=== PATIENT | female | born 1995 | race Caucasian/White ===

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

== ENCOUNTER → 2017-02-11 | Outpatient (CLI) | payer MEDICAID | LOC: OD 16:51 | PROVIDERS: ATTEND Nurse Practitioner Pediatrics | DX: N91.1 Secondary amenorrhea (principal) | CPT/HCPCS: 36415; 84702 ==

== ENCOUNTER 2017-02-26 22:44 | Emergency (ER) | payer OTHER, MEDICAID ==
[2017-02-26 23:30] LABS: APPEARANCE,URINE CLEAR; BILIRUBIN,URINE NEGATIVE (NEGATIVE); COLOR,URINE STRAW; GLUCOSE, URINE >=500 mg/dL (NEGATIVE); KETONES,URINE 20 mg/dL (NEGATIVE); LEUKOCYTE ESTERASE,URINE TRACE (NEGATIVE); NITRITE,URINE NEGATIVE (NEGATIVE); PROTEIN,URINE NEGATIVE (NEGATIVE); URINE SPECIFIC GRAVITY 1.017; UROBILINOGEN,URINE NEGATIVE mg/dL (<2.0)
[2017-02-27] MEDS ORDERED: NORMAL SALINE 1000 ML 1,000 ML IV ONE (00:45)
[2017-02-27 01:11] LABS: VENOUS BLOOD HCO3 22.5 mmol/L (20-32); VENOUS BLOOD PCO2 41.9 mmHg (35-63); VENOUS BLOOD PH 7.35 (7.30-7.42)
[2017-02-27 01:12] LABS: ABSOLUTE BASOPHILS # (AUTO) 0.1 10^3/uL (0.0-0.2); ABSOLUTE LYMPHOCYTES (AUTO) 2.9 10^3/uL (0.5-4.7); ABSOLUTE MONOCYTES (AUTO) 0.8 10^3/uL (0.1-1.4); ABSOLUTE NEUT (AUTO) 10.7 10^3/uL (1.7-8.2); BASOPHILS % (AUTO) 0.4 % (0-2); EOSINOPHILS % (AUTO) 0.3 % (0-6); HEMATOCRIT 41.1 % (36.0-47.0); LYMPHOCYTES % (AUTO) 20.1 % (13-45); MEAN CORPUSCULAR HEMOGLOBIN 29.5 pg (27.0-33.4); MEAN CORPUSCULAR HGB CONC 31.7 g/dL (32.0-36.0); MEAN CORPUSCULAR VOLUME 93 fl (80-97); MONOCYTES % (AUTO) 5.8 % (3-13); PLATELET COUNT 396 10^3/uL (150-450); RED BLOOD COUNT 4.42 10^6/uL (3.72-5.28); RED CELL DISTRIBUTION WIDTH 14.5 % (11.5-14.0); SEGMENTED NEUTROPHILS % (AUTO) 73.4 % (42-78); TOTAL CELLS COUNTED % (AUTO) 100 %; WHITE BLOOD COUNT 14.6 10^3/uL (4.0-10.5)
[2017-02-27 01:25] LABS: ALANINE AMINOTRANSFERASE 34 U/L (5-35); ALBUMIN 4.6 g/dL (3.7-5.6); ALKALINE PHOSPHATASE 117 U/L (50-135); ASPARTATE AMINO TRANSFERASE 20 U/L (5-30); BILIRUBIN,DIRECT 0.3 mg/dL (0.0-0.4); BLOOD UREA NITROGEN 15 mg/dL (7-20); CALCIUM 10.7 mg/dL (8.4-10.2); CARBON DIOXIDE 19 mmol/L (22-30); POTASSIUM 5.2 mmol/L (3.6-5.0); TOTAL PROTEIN 6.9 g/dL (6.3-8.2)
[2017-02-27] MEDS ORDERED: NORMAL SALINE 1000 ML 1,000 ML IV PRN (01:32)
[2017-02-27] MEDS ORDERED: INSULIN REG, HUMAN 100 UNIT/ML 3 ML VIAL (PYX) IV ONE (01:32)
[2017-02-27 01:34] LABS: CHLORIDE 89 mmol/L (98-107); SODIUM 128.7 mmol/L (137-145)
[2017-02-27 01:43] LABS: ANION GAP 21 (5-19)
[2017-02-27 01:46] LABS: GLUCOSE 603 mg/dL (75-110)
--- NOTE | 2017-02-27 04:33 | ER Document Report ---
ED General - General Chief Complaint: High Blood Sugar Stated Complaint: HIGH BLOOD SUGAR Time Seen by Provider: 02/27/17 00:45 Mode of Arrival: Medic Information source: Patient, Law Enforcement, Emergency Med Personnel Notes: 21-year-old female presents from senior living with complaints of hyperglycemia. Patient has a history of diabetes type 1, patient notes that in snf for the past 2 weeks she has not been receiving her insulin off the sliding scale that incorporates her meals. pt denies any vaginal bleeding ,discharge, denies any urinary complaints TRAVEL OUTSIDE OF THE [place] IN LAST 30 DAYS: No - HPI Onset: Just prior to arrival Onset/Duration: Sudden Quality of pain: No pain Severity: Mild Pain Level: Denies Associated symptoms: Nausea, Vomiting Exacerbated by: Denies Relieved by: Supine Similar symptoms previously: Yes Recently seen / treated by doctor: Yes - Related Data Allergies/Adverse Reactions: No Known Allergies Allergy (Verified 02/26/17 22:46) Past Medical History - Social History Smoking Status: Current Every Day Smoker Cigarette use (# per day): Yes Chew tobacco use (# tins/day): No Smoking Education Provided: Yes - Patient counselled regarding cessation for 4 minutes Family History: Reviewed & Not Pertinent Patient has suicidal ideation: No Patient has homicidal ideation: No Endocrine Medical History: Reports: Hx Diabetes Mellitus Type 1, Hx Diabetes Mellitus Type 2 Renal/ Medical History: Denies: Hx Peritoneal Dialysis Psychiatric Medical History: Reports: Hx Depression - Immunizations Immunizations up to date: Yes Hx Diphtheria, Pertussis, Tetanus Vaccination: Yes Review of Systems - Review of Systems Notes: REVIEW OF SYSTEMS: CONSTITUTIONAL : Denies fever, chills, or sweats. Denies recent illness. EENT: Denies eye, ear, throat, or mouth pain or symptoms. Denies nasal or sinus congestion or discharge. Denies throat, tongue, or mouth swelling or difficulty swallowing. CARDIOVASCULAR: Denies chest pain. Denies palpitations or racing or irregular heart beat. Denies ankle edema. RESPIRATORY: Denies cough, cold, or chest congestion. Denies shortness of breath, difficulty breathing, or wheezing. GASTROINTESTINAL: Admits to nausea vomiting GENITOURINARY: Denies difficulty urinating, painful urination, burning, frequency, blood in urine, or discharge. FEMALE GENITOURINARY: Denies vaginal bleeding, heavy or abnormal periods, irregular periods. Denies vaginal discharge or odor. MUSCULOSKELETAL: Denies back or neck pain or stiffness. Denies joint pain or swelling. SKIN: Denies rash, lesions or sores. HEMATOLOGIC : Denies easy bruising or bleeding. LYMPHATIC: Denies swollen, enlarged glands. NEUROLOGICAL: Denies confusion or altered mental status. Denies passing out or loss of consciousness. Denies dizziness or lightheadedness. Denies headache. Denies weakness or paralysis or loss of use of either side. Denies problems with gait or speech. Denies sensory loss, numbness, or tingling. Denies seizures. PSYCHIATRIC: Denies anxiety or stress. Denies depression, suicidal ideation, or homicidal ideation. ALL OTHER SYSTEMS REVIEWED AND NEGATIVE. PHYSICAL EXAMINATION: GENERAL: Well-appearing, well-nourished and in no acute distress. HEAD: Atraumatic, normocephalic. EYES: Pupils equal round and reactive to light, extraocular movements intact, conjunctiva are normal. ENT: Nares patent, oropharynx clear without exudates. Moist mucous membranes. NECK: Normal range of motion, supple without lymphadenopathy LUNGS: Breath sounds clear to auscultation bilaterally and equal. No wheezes rales or rhonchi. HEART: Regular rate and rhythm without murmurs ABDOMEN: Soft, nontender, nondistended abdomen. No guarding, no rebound. No masses appreciated. Female : deferred Musculoskeletal: Normal range of motion, no pitting or edema. No cyanosis. NEUROLOGICAL: Cranial nerves grossly intact. Normal speech, normal gait. Normal sensory, motor exams PSYCH: Normal mood, normal affect. SKIN: Warm, Dry, normal turgor, no rashes or lesions noted. Dictation was performed using [employer] voice recognition software Physical Exam - Vital signs Vitals: Temp Pulse Resp BP Pulse Ox 98.4 F 86 18 128/71 H 98 02/26/17 22:49 02/26/17 22:49 02/26/17 22:49 02/26/17 22:49 02/26/17 22:49 Course - Re-evaluation Re-evalutation: On arrival patient is noted to have a blood sugar over 600, she overall looks well was placed on the monitor. IV fluids were started and patient was given insulin bolus. I believe her hyperglycemia secondary to medications not being appropriate 02/27/17 04:25 Patient's blood sugars improved significantly is down to 182 at this time, hcg is positive 02/27/17 06:21 Ultrasound was consistent with a 6 week , patient was made aware of this, she states she had Raynaud's that she is , she denies any complaints otherwise Given the patient's symptoms have improved as well as her glucose has improved I believe she is stable for discharge. Very strict return precautions have been provided, vitamins have been written for the patient After performing a Medical Screening Examination, I estimate there is LOW risk for ACUTE APPENDICITIS, BOWEL OBSTRUCTION, ACUTE CHOLECYSTITIS, PERFORATED DIVERTICULITIS, INCARCERATED HERNIA, PANCREATITIS, PELVIC INFLAMMATORY DISEASE, PERFORATED ULCER, ECTOPIC , or TUBO-OVARIAN ABSCESS, thus I consider the discharge disposition reasonable. Also, there is no evidence or peritonitis , sepsis, or toxicity. I have reevaluated this patient multiple times and no significant life threatening changes are noted. The patient and I have discussed the diagnosis and risks, and we agree with discharging home with close follow-up with the understanding that symptoms and presentations can change. We also discussed returning to the Emergency Department immediately if new or worsening symptoms occur. We have discussed the symptoms which are most concerning (e.g., bloody stool, fever, changing or worsening pain, vomiting) that necessitate immediate return. - Vital Signs Vital signs: Temp Pulse Resp BP Pulse Ox 98.4 F 86 18 128/71 H 98 02/26/17 22:49 02/26/17 22:49 02/26/17 22:49 02/26/17 22:49 02/26/17 22:49 - Laboratory Result Diagrams: 02/27/17 01:00 02/27/17 01:00 Laboratory results interpreted by me: 02/26/17 02/26/17 02/27/17 23:13 23:13 01:00 WBC 14.6 H MCHC 31.7 L RDW 14.5 H Absolute Neutrophils 10.7 H Sodium Potassium Chloride Carbon Dioxide Anion Gap Glucose POC Glucose Calcium Beta HCG, Quant Urine Glucose (UA) >=500 H Urine Ketones 20 H Ur Leukocyte Esterase TRACE H Urine HCG, Qual POSITIVE H 02/27/17 02/27/17 02/27/17 01:00 01:00 02:58 WBC MCHC RDW Absolute Neutrophils Sodium 128.7 L Potassium 5.2 H Chloride 89 L Carbon Dioxide 19 L Anion Gap 21 H Glucose 603 H* POC Glucose 387 H Calcium 10.7 H Beta HCG, Quant 63080.00 H Urine Glucose (UA) Urine Ketones Ur Leukocyte Esterase Urine HCG, Qual 02/27/17 04:24 WBC MCHC RDW Absolute Neutrophils Sodium Potassium Chloride Carbon Dioxide Anion Gap Glucose POC Glucose 182 H Calcium Beta HCG, Quant Urine Glucose (UA) Urine Ketones Ur Leukocyte Esterase Urine HCG, Qual Critical Care Note - Critical Care Note Total time excluding time spent on procedures (mins): 34 Comments: 34 minutes of critical care time spent in direct contact evaluating and reevaluating the patient, treating symptoms, reviewing labs and studies and speaking with family and consultants excluding any procedures Discharge - Discharge Clinical Impression: Hyperglycemia, with 6 completed weeks gestation Condition: Stable Disposition: HOME, SELF-CARE Instructions: Hyperglycemia ([facility]) Additional Instructions: Please provide patient with insulin on sliding scale as well as calculating per meal as she does at home Please provide vitamin daily Return immediately if there are any other concerns Prescriptions: [id number]/Iron Fum/Folic/Docusate [ 19 Tablet] 1 each PO DAILY #30 tablet
--- NOTE | 2017-02-27 06:00 | RADIOLOGY REPORT (SQ) ---
EXAM DESCRIPTION: U/S OB TRANSVAG W/DOPPLER CLINICAL HISTORY: 21 years Female, + preg COMPARISON: None. TECHNIQUE: Complete transvaginal first trimester obstetrical ultrasound. FINDINGS: The uterus measures 4.6 x 5.5 x 4.4 cm. Cervix measures 2.5 cm. Within the endometrial canal there is a gestational sac with a yolk sac measuring 0.45 cm and a pole with a crown-rump length of 0.32 cm. This compatible with an estimated gestational age of 6 weeks, 0 days. No heart rate identified. No myometrial abnormalities. Trace free pelvic fluid. The right ovary measures 2.1 x 3.1 x 2.3 cm. The left ovary measures 2.1 x 3.3 x 1.6 cm. Limited color and spectral Doppler imaging demonstrates flow within the ovaries bilaterally. IMPRESSION: 1. There is a single intrauterine with estimated gestational age of 6 weeks, 0 days by crown-rump length. No cardiac activity identified. Differential considerations include demise and early normal . Close continued clinical, laboratory, and sonographic follow-up recommended.
[2017-02-27 06:19] VITALS: BP 105/62
== END 2017-02-27 06:21 | disposition home or self-care (01) ==
LOC: ER 22:44
DX: O24.011 Pre-existing type 1 diabetes mellitus, in pregnancy, first trimester (principal); E10.65 Type 1 diabetes mellitus with hyperglycemia; O21.9 Vomiting of pregnancy, unspecified; O99.331 Smoking (tobacco) complicating pregnancy, first trimester; F17.210 Nicotine dependence, cigarettes, uncomplicated; Z3A.01 Less than 8 weeks gestation of pregnancy
CPT/HCPCS: 99406; 99285; 96360; 36415; 82962; 84702; 85025; 81025; 80053; 81001; 82803; 76817; 93976; J1815; J7030

== ENCOUNTER 2017-08-04 22:47 | Emergency (ER) | payer MEDICAID, OTHER ==
[2017-08-05] MEDS ORDERED: NORMAL SALINE 1000 ML 1,000 ML IV ONE (00:01)
[2017-08-05] MEDS ORDERED: INSULIN REG, HUMAN 100 UNIT/ML 3 ML VIAL (PYX) IV ONE (00:01)
--- NOTE | 2017-08-05 00:02 | ER Document Report ---
ED General - General Chief Complaint: High Blood Sugar Stated Complaint: POSSIBLE HIGH GLUCOSE Time Seen by Provider: 08/05/17 00:01 Mode of Arrival: Ambulatory Information source: Patient, Parent Notes: 21 yr old female presents with hx of type 1 diabetes who is supposed to be on novolog with complaints of high blood sugar and feeling faint. pt denies any fevers or chills, denies any pain. pt noted that she ran out of her novolog and hasnt had it today. the pcp has not filled the medication in the pharmacy. TRAVEL OUTSIDE OF THE [place] IN LAST 30 DAYS: No - HPI Onset: Just prior to arrival Onset/Duration: Sudden Quality of pain: No pain Severity: Moderate Pain Level: Denies Associated symptoms: Weakness Exacerbated by: Denies Relieved by: Denies Similar symptoms previously: Yes Recently seen / treated by doctor: Yes - Related Data Allergies/Adverse Reactions: No Known Allergies Allergy (Verified 02/26/17 22:46) Past Medical History - Social History Smoking Status: Current Every Day Smoker Cigarette use (# per day): Yes Chew tobacco use (# tins/day): No Smoking Education Provided: No Family History: Reviewed & Not Pertinent Endocrine Medical History: Reports: Hx Diabetes Mellitus Type 1, Hx Diabetes Mellitus Type 2 Renal/ Medical History: Denies: Hx Peritoneal Dialysis Psychiatric Medical History: Reports: Hx Depression - Immunizations Immunizations up to date: Yes Hx Diphtheria, Pertussis, Tetanus Vaccination: Yes Review of Systems - Review of Systems Notes: REVIEW OF SYSTEMS: CONSTITUTIONAL : Denies fever, chills, or sweats. Denies recent illness. EENT: Denies eye, ear, throat, or mouth pain or symptoms. Denies nasal or sinus congestion or discharge. Denies throat, tongue, or mouth swelling or difficulty swallowing. CARDIOVASCULAR: Denies chest pain. Denies palpitations or racing or irregular heart beat. Denies ankle edema. RESPIRATORY: Denies cough, cold, or chest congestion. Denies shortness of breath, difficulty breathing, or wheezing. GASTROINTESTINAL: Denies abdominal pain or distention. Denies nausea, vomiting , or diarrhea. Denies blood in vomitus, stools, or per rectum. Denies black, tarry stools. Denies constipation. GENITOURINARY: Denies difficulty urinating, painful urination, burning, frequency, blood in urine, or discharge. FEMALE GENITOURINARY: Denies vaginal bleeding, heavy or abnormal periods, irregular periods. Denies vaginal discharge or odor. MUSCULOSKELETAL: Denies back or neck pain or stiffness. Denies joint pain or swelling. SKIN: Denies rash, lesions or sores. HEMATOLOGIC : Denies easy bruising or bleeding. LYMPHATIC: Denies swollen, enlarged glands. NEUROLOGICAL: weakness PSYCHIATRIC: Denies anxiety or stress. Denies depression, suicidal ideation, or homicidal ideation. ALL OTHER SYSTEMS REVIEWED AND NEGATIVE. PHYSICAL EXAMINATION: GENERAL: Well-appearing, well-nourished and in no acute distress. HEAD: Atraumatic, normocephalic. EYES: Pupils equal round and reactive to light, extraocular movements intact, conjunctiva are normal. ENT: Nares patent, oropharynx clear without exudates. Moist mucous membranes. NECK: Normal range of motion, supple without lymphadenopathy LUNGS: Breath sounds clear to auscultation bilaterally and equal. No wheezes rales or rhonchi. HEART: Regular rate and rhythm without murmurs ABDOMEN: Soft, nontender, nondistended abdomen. No guarding, no rebound. No masses appreciated. Female : deferred Musculoskeletal: Normal range of motion, no pitting or edema. No cyanosis. NEUROLOGICAL: Cranial nerves grossly intact. Normal speech, normal gait. Normal sensory, motor exams PSYCH: Normal mood, normal affect. SKIN: Warm, Dry, normal turgor, no rashes or lesions noted. Ankle alarm noted Dictation was performed using [email or web address] voice recognition software Physical Exam - Vital signs Vitals: Temp Pulse Resp BP Pulse Ox 98.3 F 95 H 18 128/73 H 97 08/04/17 22:57 08/04/17 22:57 08/04/17 22:57 08/04/17 22:57 08/04/17 22:57 Course - Re-evaluation Re-evalutation: 08/05/17 00:09 pt overall looks well, does not appear to be in dka, her complaints seem to be secondary to lack of her medication, will treat with iv fluids and insulin. mother notes she can get medication in AM if i write it for her 08/05/17 02:08 pts blood sugar has improved, she wishes to go home, will dc with mother and close return precautions After performing a Medical Screening Examination, I estimate there is LOW risk for ACUTE CORONARY SYNDROME, PULMONARY EMBOLI, RESPIRATORY FAILURE, SEPSIS OR MENINGITIS, thus I consider the discharge disposition reasonable. I have reevaluated this patient multiple times and no significant life threatening changes are noted. The patient and I have discussed the diagnosis and risks, and we agree with discharging home with close follow-up. We also discussed returning to the Emergency Department immediately if new or worsening symptoms occur. We have discussed the symptoms which are most concerning (e.g., changing or worsening pain, trouble swallowing or breathing, neck stiffness, fever) that necessitate immediate return. - Vital Signs Vital signs: Temp Pulse Resp BP Pulse Ox 98.3 F 95 H 18 128/73 H 97 08/04/17 22:57 08/04/17 22:57 08/04/17 22:57 08/04/17 22:57 08/04/17 22:57 - Laboratory Result Diagrams: 08/05/17 00:07 08/05/17 00:07 Laboratory results interpreted by me: 08/05/17 08/05/17 08/05/17 00:07 00:07 01:03 WBC 10.8 H Sodium 132.6 L Chloride 94 L Glucose 589 H* Urine Glucose (UA) >=500 H Urine Ketones 20 H Urine Blood LARGE H Discharge - Discharge Clinical Impression: Hyperglycemia due to type 1 diabetes mellitus Condition: Stable Disposition: HOME, SELF-CARE Instructions: Hyperglycemia ([facility]) Prescriptions: Insulin Aspart [Novolog Insulin 100 Unit/1 ml 10 ml] 1 unit SUBCUT .SLD SCALE # 10 ml Referrals: DIAN GARRETT MD [Primary Care Provider] - Follow up tomorrow
[2017-08-05 00:19] LABS: ABSOLUTE EOSINOPHILS # (AUTO) 0.1 10^3/uL (0.0-0.6); ABSOLUTE LYMPHOCYTES (AUTO) 2.6 10^3/uL (0.5-4.7); ABSOLUTE MONOCYTES (AUTO) 0.8 10^3/uL (0.1-1.4); ABSOLUTE NEUT (AUTO) 7.2 10^3/uL (1.7-8.2); BASOPHILS % (AUTO) 0.5 % (0-2); EOSINOPHILS % (AUTO) 0.5 % (0-6); HEMATOCRIT 38.6 % (36.0-47.0); HEMOGLOBIN 12.6 g/dL (12.0-15.5); LYMPHOCYTES % (AUTO) 24.4 % (13-45); MEAN CORPUSCULAR HEMOGLOBIN 28.8 pg (27.0-33.4); MEAN CORPUSCULAR HGB CONC 32.7 g/dL (32.0-36.0); MEAN CORPUSCULAR VOLUME 88 fl (80-97); MONOCYTES % (AUTO) 7.9 % (3-13); PLATELET COUNT 320 10^3/uL (150-450); RED BLOOD COUNT 4.37 10^6/uL (3.72-5.28); RED CELL DISTRIBUTION WIDTH 12.9 % (11.5-14.0); SEGMENTED NEUTROPHILS % (AUTO) 66.7 % (42-78); TOTAL CELLS COUNTED % (AUTO) 100 %; WHITE BLOOD COUNT 10.8 10^3/uL (4.0-10.5)
[2017-08-05 00:31] LABS: ALANINE AMINOTRANSFERASE 31 U/L (5-35); ALKALINE PHOSPHATASE 108 U/L (50-135); ANION GAP 16 (5-19); ASPARTATE AMINO TRANSFERASE 16 U/L (5-30); BILIRUBIN,DIRECT 0.3 mg/dL (0.0-0.4); BILIRUBIN,TOTAL 1.2 mg/dL (0.2-1.3); BLOOD UREA NITROGEN 18 mg/dL (7-20); CALCIUM 9.5 mg/dL (8.4-10.2); CARBON DIOXIDE 23 mmol/L (22-30); CHLORIDE 94 mmol/L (98-107); POTASSIUM 4.9 mmol/L (3.6-5.0); SODIUM 132.6 mmol/L (137-145); TOTAL PROTEIN 6.6 g/dL (6.3-8.2)
[2017-08-05 00:42] LABS: GLUCOSE 589 mg/dL (75-110)
[2017-08-05 00:42] LABS: VENOUS BLOOD BASE EXCESS -2.8 mmol/L; VENOUS BLOOD HCO3 22.4 mmol/L (20-32); VENOUS BLOOD PCO2 40.5 mmHg (35-63); VENOUS BLOOD PH 7.36 (7.30-7.42)
[2017-08-05 01:12] LABS: APPEARANCE,URINE CLEAR; BILIRUBIN,URINE NEGATIVE (NEGATIVE); COLOR,URINE STRAW; GLUCOSE, URINE >=500 mg/dL (NEGATIVE); KETONES,URINE 20 mg/dL (NEGATIVE); LEUKOCYTE ESTERASE,URINE NEGATIVE (NEGATIVE); NITRITE,URINE NEGATIVE (NEGATIVE); PROTEIN,URINE NEGATIVE (NEGATIVE); URINE SPECIFIC GRAVITY 1.023; UROBILINOGEN,URINE NEGATIVE mg/dL (<2.0)
[2017-08-05 02:25] VITALS: BP 120/77
== END 2017-08-05 02:22 | disposition home or self-care (01) ==
LOC: ER 22:47
DX: E10.65 Type 1 diabetes mellitus with hyperglycemia (principal); Z79.4 Long term (current) use of insulin; R55 Syncope and collapse; R53.1 Weakness; F17.210 Nicotine dependence, cigarettes, uncomplicated
CPT/HCPCS: 99285; 36415; 82962; 85025; 80053; 81001; 82803; J1815; J7030

== ENCOUNTER 2018-03-09 12:23 | Emergency (ER) | payer MEDICARE, MEDICAID ==
[2018-03-09] MEDS ORDERED: ONDANSETRON HCL INJ/PF 4 MG/2 ML SDV IV ONE (13:48)
[2018-03-09] MEDS ORDERED: NORMAL SALINE 1000 ML 1,000 ML IV ONE (13:48)
--- NOTE | 2018-03-09 13:48 | ER Document Report ---
ED Medical Screen (RME) - General Chief Complaint: Vomiting Stated Complaint: VOMITING Time Seen by Provider: 03/09/18 13:44 Primary Care Provider: DIAN GARRETT MD [Primary Care Provider] - Follow up as needed Mode of Arrival: Ambulatory Information source: Patient Notes: Patient is a 22-year-old female with history of type 1 diabetes who presents with vomiting. Patient reports she began vomiting last night and has been vomiting through the night into today. Patient reports she has vomited at least 6 times. Patient denies any diarrhea or fever. Patient denies any abdominal pain. Exam: Heart sounds S1-S2 present, tachycardia noted. I have greeted and performed a rapid initial assessment of this patient. A comprehensive ED assessment and evaluation of the patient, analysis of test results and completion of the medical decision making process will be conducted by additional ED providers. Dictation of this chart was performed using voice recognition software; therefore, there may be some unintended grammatical errors. TRAVEL OUTSIDE OF THE [place] IN LAST 30 DAYS: No - Related Data Allergies/Adverse Reactions: No Known Allergies Allergy (Verified 03/09/18 12:25) Past Medical History Endocrine Medical History: Reports: Hx Diabetes Mellitus Type 1, Hx Diabetes Mellitus Type 2 Renal/ Medical History: Denies: Hx Peritoneal Dialysis Psychiatric Medical History: Reports: Hx Depression - Immunizations Immunizations up to date: Yes Hx Diphtheria, Pertussis, Tetanus Vaccination: Yes Physical Exam - Vital signs Vitals: Temp Pulse Resp BP Pulse Ox 98.3 F 106 H 18 138/75 H 99 03/09/18 13:13 03/09/18 13:13 03/09/18 13:13 03/09/18 13:13 03/09/18 13:13 Course - Vital Signs Vital signs: Temp Pulse Resp BP Pulse Ox 98.3 F 106 H 18 138/75 H 99 03/09/18 13:13 03/09/18 13:13 03/09/18 13:13 03/09/18 13:13 03/09/18 13:13 Doctor's Discharge - Discharge Referrals: DIAN GARRETT MD [Primary Care Provider] - Follow up as needed
[2018-03-09 15:19] LABS: ABSOLUTE BASOPHILS # (AUTO) 0.1 10^3/uL (0.0-0.2); ABSOLUTE EOSINOPHILS # (AUTO) 0.1 10^3/uL (0.0-0.6); ABSOLUTE LYMPHOCYTES (AUTO) 3.1 10^3/uL (0.5-4.7); ABSOLUTE MONOCYTES (AUTO) 0.7 10^3/uL (0.1-1.4); ABSOLUTE NEUT (AUTO) 7.7 10^3/uL (1.7-8.2); BASOPHILS % (AUTO) 0.7 % (0-2); EOSINOPHILS % (AUTO) 0.6 % (0-6); HEMATOCRIT 38.3 % (36.0-47.0); HEMOGLOBIN 12.7 g/dL (12.0-15.5); LYMPHOCYTES % (AUTO) 26.5 % (13-45); MEAN CORPUSCULAR HEMOGLOBIN 28.7 pg (27.0-33.4); MEAN CORPUSCULAR HGB CONC 33.2 g/dL (32.0-36.0); MEAN CORPUSCULAR VOLUME 87 fl (80-97); MONOCYTES % (AUTO) 5.8 % (3-13); PLATELET COUNT 459 10^3/uL (150-450); RED BLOOD COUNT 4.42 10^6/uL (3.72-5.28); RED CELL DISTRIBUTION WIDTH 13.8 % (11.5-14.0); SEGMENTED NEUTROPHILS % (AUTO) 66.4 % (42-78); TOTAL CELLS COUNTED % (AUTO) 100 %; WHITE BLOOD COUNT 11.6 10^3/uL (4.0-10.5)
[2018-03-09 15:31] LABS: ALANINE AMINOTRANSFERASE 34 U/L (9-52); ALBUMIN 4.3 g/dL (3.5-5.0); ALKALINE PHOSPHATASE 108 U/L (38-126); ANION GAP 9 (5-19); ASPARTATE AMINO TRANSFERASE 18 U/L (14-36); BILIRUBIN,DIRECT 0.1 mg/dL (0.0-0.4); BILIRUBIN,TOTAL 0.3 mg/dL (0.2-1.3); BLOOD UREA NITROGEN 8 mg/dL (7-20); CALCIUM 9.6 mg/dL (8.4-10.2); CARBON DIOXIDE 26 mmol/L (22-30); CHLORIDE 104 mmol/L (98-107); GLUCOSE 230 mg/dL (75-110); POTASSIUM 4.5 mmol/L (3.6-5.0); SODIUM 139.2 mmol/L (137-145); TOTAL PROTEIN 6.9 g/dL (6.3-8.2)
--- NOTE | 2018-03-09 15:46 | ER Document Report ---
ED GI/ - General Chief Complaint: Vomiting Stated Complaint: VOMITING Time Seen by Provider: 03/09/18 13:44 Primary Care Provider: DIAN GARRETT MD [Primary Care Provider] - Follow up as needed Mode of Arrival: Ambulatory Notes: Patient is a 22-year-old female with history of type 1 diabetes who presents with vomiting. Patient reports she began vomiting last night and has been vomiting through the night into today. Patient reports she has vomited at least 6 times. Patient denies any diarrhea or fever. Patient denies any abdominal pain. TRAVEL OUTSIDE OF THE [place] IN LAST 30 DAYS: No - Related Data Allergies/Adverse Reactions: No Known Allergies Allergy (Verified 03/09/18 12:25) Past Medical History - General Information source: Patient - Social History Smoking Status: Never Smoker Frequency of alcohol use: None Drug Abuse: None Family History: Reviewed & Not Pertinent Endocrine Medical History: Reports: Hx Diabetes Mellitus Type 1 Renal/ Medical History: Denies: Hx Peritoneal Dialysis Psychiatric Medical History: Reports: Hx Depression Surgical Hx: Negative - Immunizations Immunizations up to date: Yes Hx Diphtheria, Pertussis, Tetanus Vaccination: Yes Review of Systems - Review of Systems Constitutional: No symptoms reported EENT: No symptoms reported Cardiovascular: No symptoms reported Respiratory: No symptoms reported Gastrointestinal: Nausea, Vomiting Genitourinary: No symptoms reported Female Genitourinary: No symptoms reported Musculoskeletal: No symptoms reported Skin: No symptoms reported Hematologic/Lymphatic: No symptoms reported Neurological/Psychological: No symptoms reported Physical Exam - Vital signs Vitals: Temp Pulse Resp BP Pulse Ox 98.3 F 106 H 18 138/75 H 99 03/09/18 13:13 03/09/18 13:13 03/09/18 13:13 03/09/18 13:13 03/09/18 13:13 - Notes Notes: PHYSICAL EXAMINATION: GENERAL: Well-appearing, well-nourished and in no acute distress. HEAD: Atraumatic, normocephalic. EYES: Pupils equal round and reactive to light, extraocular movements intact, conjunctiva are normal. ENT: Nares patent, oropharynx clear without exudates. Moist mucous membranes. NECK: Normal range of motion, supple without lymphadenopathy LUNGS: Breath sounds clear to auscultation bilaterally and equal. No wheezes rales or rhonchi. HEART: Regular rate and rhythm without murmurs ABDOMEN: Soft, nontender, nondistended abdomen. No guarding, no rebound. No masses appreciated. Female : No CVA tenderness. Musculoskeletal: Normal range of motion, no pitting or edema. No cyanosis. NEUROLOGICAL: Cranial nerves grossly intact. Normal speech, normal gait. Normal sensory, motor exams PSYCH: Normal mood, normal affect. SKIN: Warm, Dry, normal turgor, no rashes or lesions noted. Course - Re-evaluation Re-evalutation: 03/09/18 15:46 CBC and comprehensive have resulted on her both unremarkable. There is no turner dence of this patient being in diabetic ketoacidosis. Patient's anion gap is normal. Patient's urinalysis is not resulted and her VBG was misplaced by the lab. Patient is adamant that she needs to go home because her mother just broke her wrist and she needs to check on her. Patient has no abdominal pain and has not vomited since arrival. Patient looks well and her vital signs are normal at this time. Patient was mildly tachycardic with a heart rate of 106 on arrival. I did discuss with patient that should she worsen in any way as outlined by her discharge instructions she is to return to the emergency department immediately. - Vital Signs Vital signs: Temp Pulse Resp BP Pulse Ox 98.5 F 93 16 138/95 H 100 03/09/18 15:46 03/09/18 15:46 03/09/18 15:46 03/09/18 15:46 03/09/18 15:46 - Laboratory Result Diagrams: 03/09/18 15:05 03/09/18 15:05 Laboratory results interpreted by me: 03/09/18 03/09/18 15:05 15:05 WBC 11.6 H Plt Count 459 H Glucose 230 H Discharge - Discharge Clinical Impression: Vomiting Qualifiers: Vomiting type: unspecified Vomiting Intractability: unspecified Nausea presence : with nausea Qualified Code(s): R11.2 - Nausea with vomiting, unspecified Condition: Stable Disposition: HOME, SELF-CARE Instructions: Antinausea Medication ([facility]), Intravenous (IV) Fluids ([facility]), Vomiting ([facility]) Additional Instructions: You are seen in the emergency department today for vomiting. Your initial blood work looks okay. You have opted to leave the emergency department before the rest of your blood work and urine are back. Please return to the emergency department if you develop worsening of your symptoms such as persistent vomiting despite taking the antinausea medicine, development of fever, abdominal pain or any other symptom that is worrisome to you. We are happy to reevaluate you at any time. Prescriptions: Ondansetron [Zofran Odt 4 mg Tablet] 1 - 2 tab PO Q4H PRN #15 tab.rapdis PRN Reason: For Nausea/Vomiting Forms: Return to Work Referrals: DIAN GARRETT MD [Primary Care Provider] - Follow up as needed
[2018-03-09 15:47] VITALS: BP 138/95
== END 2018-03-09 15:52 | disposition home or self-care (01) ==
LOC: ER 12:23
DX: R11.2 Nausea with vomiting, unspecified (principal); E10.9 Type 1 diabetes mellitus without complications
CPT/HCPCS: 99284; 96361; 96374; 36415; 85025; 80053; J2405; J7030